=== PATIENT | female | born 1995 | race Caucasian/White ===

== ENCOUNTER 2019-07-19 08:45 | Emergency (ER) | payer BC ==
[~2019-07-19] VITALS: Ht 167.6 cm; Wt 86.4 kg
[2019-07-19 08:50] VITALS: Ht 167.6 cm; Wt 86.4 kg
[2019-07-19 09:44] LABS: BASOPHILS 0.4 % (0-2); EOSINOPHILS 3.2 % (0-7); HEMATOCRIT 44.8 % (36.0-48.0); HEMOGLOBIN 14.5 g/dL (12-16); LYMPHOCYTES 39.9 % (15-50); MCH 30.3 pg (26.0-34.0); MCHC 32.4 g/dL (31.0-37.0); MCV 93.7 fL (80.0-100.0); MEAN PLATELET VOLUME 10.6 fL (7.4-10.4); MONOCYTES 6.4 % (2-11); NEUTROPHILS 50.1 % (40-80); PLATELET COUNT 221 10x3/uL (130-400); RBC 4.78 10x6/uL (4.00-5.40); RDW 13.2 % (11.5-14.5); WBC 5.7 10x3/uL (4.8-10.8)
[2019-07-19 09:46] LABS: BILIRUBIN NEGATIVE (NEGATIVE); GLUCOSE NEGATIVE (NEGATIVE); KETONE NEGATIVE (NEGATIVE); NITRITE NEGATIVE (NEGATIVE); SPECIFIC GRAVITY 1.005 (1.005-1.020); UROBILINOGEN NORMAL (NORMAL)
[2019-07-19 09:56] LABS: CALC OSMOLALITY 273 mosm/kg (275-300); CALCIUM 8.8 mg/dL (8.5-10.1); CARBON DIOXIDE 23.5 mmol/L (21.0-32.0); CHLORIDE - SERUM 107 mmol/L (98-107); CREATININE - SERUM 0.6 mg/dL (0.6-1.3); GLUCOSE 85 mg/dL (74-106); POTASSIUM - SERUM 4.2 mmol/L (3.5-5.1); SODIUM 139 mmol/L (136-145); UREA NITROGEN 5 mg/dL (7-18); eGFR NON AFRICAN AMERICAN > 90 mL/min (90-120)
[2019-07-19 10:01] LABS: HCG URINE NEGATIVE (NEGATIVE)
[2019-07-19 10:02] LABS: ALBUMIN 3.7 g/dL (3.4-5.0); ALKALINE PHOSPHATASE 85 U/L (30-120); ALT (SGPT) 45 U/L (10-68); BILIRUBIN - TOTAL 0.39 mg/dL (0.2-1.3); PROTEIN - SERUM 7.1 g/dL (6.4-8.2)
[2019-07-19] MEDS ORDERED: CYCLOBENZAPRINE10 MG PO (11:09)
[2019-07-19] MEDS ORDERED: ACETAMINOPHEN500 M1 PO (11:09)
[2019-07-19] MEDS ORDERED: IBUPROFEN800 MG PO (11:09)
[2019-07-19 11:50] VITALS: BP 128/79
== END 2019-07-19 11:51 | disposition home or self-care (01) ==
LOC: D.ER 08:45
PROVIDERS: Family Medicine
DX: M54.6 Pain in thoracic spine (principal); M54.5 Low back pain; M79.18 Myalgia, other site; R10.9 Unspecified abdominal pain; T14.8XXA Other injury of unspecified body region, initial encounter